=== PATIENT | male | born 1980 | race Caucasian/White ===

== ENCOUNTER 2018-01-04 08:59 | Outpatient (CLI) | payer BC ==
[2018-01-04] MEDS ORDERED: ISOVUE-370 76%-LOCM 1 ML ONE (11:49)
--- NOTE | 2018-01-05 18:59 | CT ---
CT ABDOMEN AND PELVIS WITH AND WITHOUT CONTRAST: Date: 01/04/18 HISTORY: R59.0, nonpathologically enlarged mesenteric lymph nodes on CT. COMPARISON: CT dated 11/27/17. FINDINGS: Lung bases are clear. No pericardial effusion. On the noncontrast portion of the examination, there is no nephroureterolithiasis or hydroureteroneph rosis. No secondary evidence of recently passed stone. New from the comparison examination is submucosal thickening of the entire colon, as well as of the t erminal ileum. There is some low grade submucosal fatty infiltration of the colon. The aortoiliac contour is nonaneurysmal. Spleen, liver, gallbladder, and pancreas are all unremarkabl e. Adrenal glands are normal. No abnormal renal enhancing mass. No retroperitoneal adenopathy. Unchanged from the comparison examination is mild infiltration of the proximal small bowel mesentery, as well as increased size and number of mesenteric lymph nodes. This is likely a chronic low grade i nfectious/inflammatory process. An example of mesenteric lymph nodes, series 3, image 62, measures 8. 0 mm in short axis, unchanged. Another index lymph node just craniad to this on image 60 measures 6.0 mm short axis, unchanged. No new lymph nodes from the comparison examination. These lymph nodes do r etain their fatty hilum and are just enlarged, not round. Skeleton is unremarkable. IMPRESSION: 1. Mild infiltration of the proximal small bowel mesentery with increased size and number of mesente peter lymph nodes, completely unchanged from the comparison examination. Index lymph nodes are given. T his has the appearance of a chronic longstanding inflammatory process and is not likely neoplastic in nature. 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 Underlying lymphoproliferative disorder such as lymphoma is felt much less likely. 2. Circumferential wall thickening and submucosal edema throughout the colon, as well as some fatty infiltration of the submucosa involving the terminal ileum. Nonemergent follow-up GI consultation for evaluation for Crohn's disease is recommended. POS: [facility]
== END 2018-01-04 09:00 | disposition home or self-care (01) ==
LOC: BICCT 08:59
PROVIDERS: ATTEND Internal Medicine Hematology & Oncology
DX: R59.0 Localized enlarged lymph nodes (principal); G40.89 Other seizures; K63.89 Other specified diseases of intestine
CPT/HCPCS: 74178

== ENCOUNTER 2019-11-01 14:57 | Inpatient (IN) | payer BC, OTHER ==
[2019-11-01] MEDS ORDERED: Aspirin Chewable 81 MG TAB ONE ×2 (15:59)
[2019-11-01] MEDS ORDERED: hydrALAZINE 20 MG/ML VIAL SLOW IVP PRN (16:18)
--- NOTE | 2019-11-01 16:21 | PDOC.HHP ---
Hospitalist HPI - History of Present Illness L arm weakness and numbness History of Present Illness: The patient is a 39-year-old male with past medical history as noted below who presented to the hospital with new onset left upper extremity numbness and weakness extending from his elbow to the hand. His symptoms persisted which prompted him to present to the emergency department. CT scan of the head without contrast was obtained which did not show any acute abnormalities. Given the persistence of his neurological symptoms, we will admit the patient to the hospital to rule out CVA. Hospitalist ROS - Review of Systems All other systems reviewed; all pertinent +/- noted in HPI/Subj Hospitalist History - Past Medical History [employer]CH[employer]IC: reports: Seizure - Past Surgical History Other Surgical History: Charleen lip and palate surgery - Family History Family History: reports: no pertinent history - Social History Smoking Status: Former smoker Alcohol: reports: None Drugs: reports: none - Exam General Appearance: awake alert Neck: supple, no JVD Heart: RRR, no murmur, no gallops Respiratory: CTAB, no wheezes, no rales Neurological: cranial nerve grossly intact Hospitalist H&P A/P - Problem (1) Left arm weakness Code(s): R29.898 - OTH SYMPTOMS AND SIGNS INVOLVING THE MUSCULOSKELETAL SYSTEM Status: Acute (2) Left arm numbness Code(s): R20.0 - ANESTHESIA OF SKIN Status: Acute - Plan Plan: Neuro tele. Neurochecks q4h. Liberate BP and treat if SBP>220 OR DBP>120 Check A1C, Lipid pnl, A1C. Check Brain MRI. Check carotid duplex. Echo cardiogram. ASA and Atorvastatin. Lovenox for DVT ppx.
[2019-11-01 17:40] VITALS: BMI 24.0
[2019-11-01] MEDS: Atorvastatin Calcium 40 MG TAB PO SCH (20:54)
[2019-11-02 04:55] LABS: Cardiac Risk 3.1 (Less than 4.5)
[2019-11-02] MEDS: Aspirin 325 mg Enteric Coated Tablet PO SCH (09:14)
[2019-11-02] MEDS: Enoxaparin Sodium 40 MG/0.4 ML SYRINGE SC SCH (09:14)
--- NOTE | 2019-11-02 10:32 | ULT ---
BILATERAL CAROTID DUPLEX ULTRASOUND: HISTORY: Transient ischemic attack TECHNIQUE: Grayscale, color-flow and spectral Doppler ultrasound imaging of the extracranial carotid artery syst ems and vertebral arteries was performed bilaterally. FINDINGS: No large amount of echogenic plaque is seen involving the common carotid or internal carotid arteries . The peak systolic velocity in the right ICA measures 107.5 cm/s. The peak systolic velocity in the r ight CCA measures 618.9 cm/s. The peak systolic velocity in the left ICA measures 103.1 cm/s. The peak systolic velocity in the left CCA measures 106.5 cm/s. The right IC/CC ration is0.9. The left IC/CC ratio is 1.0. Vertebral flow: antegrade, bilaterally. . IMPRESSION: No hemodynamically significant stenosis of either carotid artery
[2019-11-02] MEDS ORDERED: Prochlorperazine Maleate 5 MG TAB PO PRN (11:33)
[2019-11-02] MEDS ORDERED: diphenhydrAMINE 25 MG CAP PO PRN (11:33)
[2019-11-02] MEDS ORDERED: diphenhydrAMINE 25 MG CAP PO SCH (11:45)
[2019-11-02] MEDS ORDERED: Prochlorperazine Maleate 5 MG TAB PO SCH (11:45)
[2019-11-02 12:01] LABS: SARS-CoV-2 MS2 Positive; SARS-CoV-2 N Gene Negative; SARS-CoV-2 S Gene Negative; SARS-CoV-2 by NAA Not Detected (NotDetected); SARS-CoV-2 orf1ab Negative
--- NOTE | 2019-11-02 14:12 | PDOC.HOSPP ---
- Subjective Encounter Date: 11/02/19 Subjective: Patient still having persistent weakness and numbness in his left hand and wrist area. - Objective Vital Signs & Weight: Vital Signs (12 hours) Temp Pulse Resp BP Pulse Ox 11/02/19 11:43 98.2 F 67 16 107/66 96 11/02/19 07:43 97.5 F L 66 16 100/62 98 11/02/19 04:40 98.9 F 62 16 107/68 96 Weight Weight 172 lb 11.2 oz I&O: 11/01/19 11/02/19 11/03/19 06:59 06:59 06:59 Intake Total 960 960 Balance 960 960 Hospitalist ROS - Medication Medications: Active Medications Generic Name Dose Route Start Last Admin Trade Name Freq PRN Reason Stop Dose Admin Aspirin 325 mg 11/02/19 09:00 11/02/19 09:14 Aspirin 325 Mg Enteric Coated Tablet PO 325 mg DAILY HERO Administration Atorvastatin Calcium 40 mg 11/01/19 21:00 11/01/19 20:54 Atorvastatin Calcium 40 Mg Tab PO 40 mg HS HERO Administration Enoxaparin Sodium 40 mg 11/02/19 09:00 11/02/19 09:14 Enoxaparin Sodium 40 Mg/0.4 Ml Syringe SC 40 mg 0900 HERO Administration - Exam General Appearance: awake alert Neck: supple, no JVD Respiratory: normal chest expansion, no tachypnea Neurological: cranial nerve grossly intact, no new deficit Hosp A/P (1) Left arm weakness Code(s): R29.898 - OTH SYMPTOMS AND SIGNS INVOLVING THE MUSCULOSKELETAL SYSTEM Status: Acute (2) Left arm numbness Code(s): R20.0 - ANESTHESIA OF SKIN Status: Acute - Plan Persistent weakness rule out CVA. Pending results of MRI of the brain and carotid duplex in addition to echocardiogram. Continue aspirin and atorvastatin.
--- NOTE | 2019-11-02 14:12 | MRI ---
MRI OF THE BRAIN WITHOUT CONTRAST: 11/02/19 HISTORY: Left arm numbness. FINDINGS: Correlation is made with the CT scan from 11/01/19. No restricted diffusion is seen. No evidence of acute infarct, hemorrhage or midline shift is noted. The ventricular size is normal an d the basilar cisterns patent. Prominent cisterna magna versus arachnoid cyst in the posterior fossa are again noted. There is mucosal disease in the paranasal sinuses. IMPRESSION: No evidence of acute intracranial process. POS: [facility]
--- NOTE | 2019-11-02 14:37 | CON ---
NEUROLOGY CONSULTATION DATE OF CONSULTATION: 11/02/2019 REASON FOR CONSULTATION: Left upper extremity weakness and numbness. HISTORY OF PRESENT ILLNESS: Mr. Becerril is a 39-year-old male with medical history significant for cleft palate, status post surgery, and seizure, presented to the emergency room in [place] with right upper extremity numbness and weakness per the patient. He was last known well around midnight last night. On the morning of 11/01/2019, he woke up around 6:07 a.m. and had left arm tingling with pins and needles sensation associated with headache. He felt his left arm is slightly weak. He went to the emergency room and noticed some chest pressure, also on the left side most of the symptoms of weakness resolved, but he still has left arm tingling and numbness. He denies nausea or vomiting, but does have complaint of headache about 7/10 all over the head with no photophobia or phonophobia. He denies chest pain, loss of appetite, vertigo, dizziness, blurred vision, loss of vision, or loss of consciousness associated with the symptoms. He was admitted for stroke rule out. PAST MEDICAL HISTORY: Seizures, arthritis, cleft lip and palate, status post bone graft surgery, and hernia repair x2. SOCIAL HISTORY: The patient denies alcohol or illegal drug use. He is a former smoker and , lives at home with his family. ALLERGIES: NO KNOWN DRUG ALLERGIES. MEDICATIONS: He takes home medication. He takes medication for arthritis. In the emergency room, he was given aspirin and admitted to the floor for further workup for stroke. REVIEW OF SYSTEMS: All 14 systems were reviewed and were negative except the pertinent positives and negatives mentioned in the HPI. - Objective Vital Signs & Weight: Vital Signs (12 hours) Temp Pulse Resp BP Pulse Ox 11/02/19 11:43 98.2 F 67 16 107/66 96 11/02/19 07:43 97.5 F L 66 16 100/62 98 11/02/19 04:40 98.9 F 62 16 107/68 96 Weight Weight 172 lb 11.2 oz I&O: 11/01/19 11/02/19 11/03/19 06:59 06:59 06:59 Intake Total 960 960 Balance 960 960 Active Medications Generic Name Dose Route Start Last Admin Trade Name Freq PRN Reason Stop Dose Admin Aspirin 325 mg 11/02/19 09:00 11/02/19 09:14 Aspirin 325 Mg Enteric Coated Tablet PO 325 mg DAILY HERO Administration Atorvastatin Calcium 40 mg 11/01/19 21:00 11/01/19 20:54 Atorvastatin Calcium 40 Mg Tab PO 40 mg HS HERO Administration Enoxaparin Sodium 40 mg 11/02/19 09:00 11/02/19 09:14 Enoxaparin Sodium 40 Mg/0.4 Ml Syringe SC 40 mg 0900 HERO Administration PHYSICAL EXAMINATION: CVS: Regular rate and rhythm. CHEST: Clear. ABDOMEN: Soft. NECK: Supple. NEUROLOGIC: Mental status, the patient is alert and oriented to person, place, and time. Recent and remote memory, intact. Speech is clear. Follows commands appropriately. Cranial nerves 2 through 12 intact. Motor; muscle tone and bulk are normal. Strength 5/5 bilaterally. Sensory; decreased sensation to light touch in the left upper extremity. Finger-nose testing intact. Gait deferred due to the patient's safety reasons. DATA REVIEWED: I reviewed the CT scan, which was negative for acute intracranial pathology. Carotid Dopplers were negative for hemodynamically significant stenosis. ASSESSMENT AND PLAN: (1) Left arm weakness Code(s): R29.898 - OT SYMPTOMS AND SIGNS INVOLVING THE MUSCULOSKELETAL SYSTEM Status: Acute (2) Left arm numbness Code(s): R20.0 - ANESTHESIA OF SKIN Status: Acute (3) Headache Status: Acute Mr. Tavo Becerril is a 39-year-old male, who was consulted for left upper extremity numbness and weakness for stroke/ TIA workup.Complicated migraine with neurological features also in the differential. Consider MRI of the brain to rule out acute intracranial pathology. 2D echo to evaluate for left ventricular ejection fraction. Telemetry. Continue aspirin and high-intensity statin for secondary stroke prevention. Continue home medications. Strict control of blood pressure at this time. Strict control of blood glucose. Headache, consider Toradol and Compazine combination p.r.n. for headache. Neuro checks every 4 hours. Continue PT/OT/Speech. DVT prophylaxis. Continue medical management per Primary Team. We will continue to follow. Thank you for the consult. Job ID: [id number] MTDD
[2019-11-02] MEDS: Atorvastatin Calcium 40 MG TAB PO SCH (20:33)
[2019-11-03] MEDS ORDERED: Ketorolac Tromethamine 30 MG/ML VIAL IVP SCH (00:15)
[2019-11-03] MEDS: Aspirin 325 mg Enteric Coated Tablet PO SCH (09:11)
[2019-11-03] MEDS: Enoxaparin Sodium 40 MG/0.4 ML SYRINGE SC SCH (09:11)
[2019-11-03] MEDS: Ketorolac Tromethamine 30 MG/ML VIAL IVP SCH ×2 (12:03→19:12)
[2019-11-03] MEDS: diphenhydrAMINE 50 MG/ML VIAL IVP SCH ×2 (12:08→19:12)
[2019-11-03] MEDS: Prochlorperazine 10 MG/2 ML VIAL IVP SCH ×2 (12:11→19:13)
--- NOTE | 2019-11-03 12:34 | PDOC.NEUPN ---
- Subjective Encounter Date: 11/03/19 Subjective: Patient complain of neck pain and pain in the left upper extremity with weakness. He also complained of headache . MRI of the brain did not reveal any acute intracranial process stroke or bleed. - Objective Vital Signs & Weight: Vital Signs (12 hours) Temp Pulse Resp BP BP Pulse Ox 11/03/19 11:34 98 F 69 16 100/62 98 11/03/19 07:49 97.7 F 61 16 98/55 L 98 11/03/19 04:55 97.7 F 59 L 16 102/57 L 98 11/03/19 00:36 98.2 F 62 16 108/65 98 Weight Weight 172 lb 11.2 oz I&O: 11/02/19 11/03/19 11/04/19 06:59 06:59 06:59 Intake Total 960 1640 Balance 960 1640 Radiology Reviewed by me: Yes EKG Reviewed by me: Yes ROS - Review of Systems Constitutional: denies: fever, chills, sweats, weakness, malaise, other Eyes: reports: other (headache). denies: pain, vision change, conjunctivae inflammation, eyelid inflammation, redness ENT: denies: ear pain, ear discharge, nose pain, nose discharge, nose congestion, mouth pain, mouth swelling, throat pain, throat swelling, other Respiratory: denies: cough, dry, shortness of breath, hemoptysis, SOB with excertion, pleuritic pain, sputum, wheezing, other Cardiovascular: denies: no pertinent history, AFIB, CAD, CHF, HTN, DE, Syncope, Hyperlipidemia, Mitral valve stenosis, Aortic stenosis, Valve insufficiency, Pu lmonary hypertension, Other Musculoskeletal: reports: neck pain, arm pain. denies: shoulder pain, back pain, hand pain, leg pain, foot pain, other Neurological: reports: weakness, numbness. denies: incoordination, change in speech, confusion, seizures, other - Medication Medications: Active Medications Generic Name Dose Route Start Last Admin Trade Name Freq PRN Reason Stop Dose Admin Aspirin 325 mg 11/02/19 09:00 11/03/19 09:11 Aspirin 325 Mg Enteric Coated Tablet PO 325 mg DAILY HERO Administration Atorvastatin Calcium 40 mg 11/01/19 21:00 11/02/19 20:33 Atorvastatin Calcium 40 Mg Tab PO 40 mg HS HERO Administration Diphenhydramine HCl 25 mg 11/03/19 12:00 11/03/19 12:08 Diphenhydramine 50 Mg/Ml Vial IVP 11/04/19 18:01 25 mg Q6HR HERO Administration Enoxaparin Sodium 40 mg 11/02/19 09:00 11/03/19 09:11 Enoxaparin Sodium 40 Mg/0.4 Ml Syringe SC 40 mg 0900 HERO Administration Ketorolac Tromethamine 15 mg 11/03/19 12:00 11/03/19 12:03 Ketorolac Tromethamine 30 Mg/Ml Vial IVP 11/04/19 18:01 15 mg Q6HR HERO Administration Prochlorperazine Edisylate 15 mg 11/03/19 12:00 11/03/19 12:11 Prochlorperazine 10 Mg/2 Ml Vial IVP 11/04/19 18:01 15 mg Q6HR HERO Administration Sodium Chloride 10 ml 11/01/19 16:18 11/03/19 09:12 Flush - Normal Saline 10 Ml Syringe IVF 10 ml PRN PRN Administration Saline Flush - Exam General Appearance: awake alert Eye: PERRL ENT: normocephalic atraumatic Neck: supple Respiratory: CTAB Cardiovascular: RRR Gastrointestinal: soft Extremities: no cyanosis Skin: normal turgor Neurological: CN's grossly intact, no new deficit Musculoskeletal: normal tone, no muscle wasting PSYCH: normal affect, normal behavior, A&O x 3, oriented to person, oriented to place, oriented to time Results - EKG Interpretation EKG: nsr - Radiology Interpretation MRI - head Status: image reviewed by me, report reviewed by me Additional Comment: no acute intracranial pathology PN A/P (1) Left arm numbness Code(s): R20.0 - ANESTHESIA OF SKIN Status: Acute (2) Headache Code(s): R51 - HEADACHE Status: Acute (3) Neck pain Code(s): M54.2 - CERVICALGIA Status: Acute - Plan Daily Plan: PT/OT, out of bed/ambulate 39-year-old male presented with acute onset numbness associated with mild weakness of the left upper extremity. Patient continues to have these symptoms. MRI of the brain did not show any acute intracranial process. Patient does complain of headache and neck stiffness neck pain. Most likely complicated migraine with neurological features. MRI of the brain reviewed and was negative for acute intracranial pathology. Start scheduled doses of migraine cocktail to abort the headache. Toradol 15 mg every 6 hours x6 doses. Compazine 15 mg IV every 6 hours x6 doses. Benadryl 25 mg IV every 6 hours x6 doses. Neuro checks every 4 hours. Cervical spine MRI for neck pain. Continue home medications. Continue medical management per primary team. Plan discussed in detail with the patient, nursing staff and the primary attending Dr. Pitt
--- NOTE | 2019-11-03 14:05 | MRI ---
MRI of thecervical spine: 11/03/2019 COMPARISON:None available HISTORY:Complex migraine, left hand numbness, tingling TECHNIQUE: Multiplanar multisequence MR imaging of thecervical spine without contrast Findings:The sagittal STIR imaging demonstrates no focal area of osseous marrow edema. There is incre ased T2 signal posterior to the cerebellum which may signify posterior fossa arachnoid cyst or maybe cisterna magna. C2-3: No central canal or neural foraminal stenosis. C3-4: No central canal or neural foraminal stenosis C4-5: There is minimal disc bulge with no significant central canal or neural foraminal stenosis. C5-6: There is disc desiccation with mild disc bulge effacing the ventral thecal sac and abutting the ventral aspect of the cord with a mild degree of central canal stenosis. Disc bulge extends into bilateral neural foramina causing a mild/moderate degree of bilateral neural foraminal stenosis. C6-7: Unremarkable C7-T1: Unremarkable. No focal area of abnormal signal intensity is identified within the cervical cord. IMPRESSION:Degenerative disc disease of the cervical spine, most prominent at C5-6. Posterior fossa arachnoid cyst versus megacystis sternum magna, incompletely imaged on this exam.
--- NOTE | 2019-11-03 14:17 | PDOC.HOSPP ---
- Subjective Encounter Date: 11/03/19 Subjective: c/o headache and neck pain - Objective Vital Signs & Weight: Vital Signs (12 hours) Temp Pulse Resp BP BP Pulse Ox 11/03/19 11:34 98 F 69 16 100/62 98 11/03/19 07:49 97.7 F 61 16 98/55 L 98 11/03/19 04:55 97.7 F 59 L 16 102/57 L 98 Weight Weight 172 lb 11.2 oz I&O: 11/02/19 11/03/19 11/04/19 06:59 06:59 06:59 Intake Total 960 1640 Balance 960 1640 Hospitalist ROS - Medication Medications: Active Medications Generic Name Dose Route Start Last Admin Trade Name Freq PRN Reason Stop Dose Admin Aspirin 325 mg 11/02/19 09:00 11/03/19 09:11 Aspirin 325 Mg Enteric Coated Tablet PO 325 mg DAILY HERO Administration Atorvastatin Calcium 40 mg 11/01/19 21:00 11/02/19 20:33 Atorvastatin Calcium 40 Mg Tab PO 40 mg HS HERO Administration Diphenhydramine HCl 25 mg 11/03/19 12:00 11/03/19 12:08 Diphenhydramine 50 Mg/Ml Vial IVP 11/04/19 18:01 25 mg Q6HR HERO Administration Enoxaparin Sodium 40 mg 11/02/19 09:00 11/03/19 09:11 Enoxaparin Sodium 40 Mg/0.4 Ml Syringe SC 40 mg 0900 HERO Administration Ketorolac Tromethamine 15 mg 11/03/19 12:00 11/03/19 12:03 Ketorolac Tromethamine 30 Mg/Ml Vial IVP 11/04/19 18:01 15 mg Q6HR HERO Administration Prochlorperazine Edisylate 15 mg 11/03/19 12:00 11/03/19 12:11 Prochlorperazine 10 Mg/2 Ml Vial IVP 11/04/19 18:01 15 mg Q6HR HERO Administration Sodium Chloride 10 ml 11/01/19 16:18 11/03/19 09:12 Flush - Normal Saline 10 Ml Syringe IVF 10 ml PRN PRN Administration Saline Flush - Exam General Appearance: awake alert Neck: supple, no JVD Heart: RRR Extremities: no cyanosis, no clubbing Neurological: cranial nerve grossly intact, no weakness Hosp A/P (1) Left arm weakness Code(s): R29.898 - OTH SYMPTOMS AND SIGNS INVOLVING THE MUSCULOSKELETAL SYSTEM Status: Acute (2) Left arm numbness Code(s): R20.0 - ANESTHESIA OF SKIN Status: Acute - Plan CVA ruled out. Still complaining of headache and neck pain. His symptoms still present. MRI of the cervical spine.
[2019-11-03] MEDS: Atorvastatin Calcium 40 MG TAB PO SCH (21:06)
[2019-11-04] MEDS: diphenhydrAMINE 50 MG/ML VIAL IVP SCH ×3 (01:47→15:00)
[2019-11-04] MEDS: Prochlorperazine 10 MG/2 ML VIAL IVP SCH ×3 (01:48→15:25)
[2019-11-04] MEDS: Ketorolac Tromethamine 30 MG/ML VIAL IVP SCH ×3 (01:48→15:25)
--- NOTE | 2019-11-04 08:22 | PRG ---
DATE OF SERVICE: 11/04/2019 SUBJECTIVE: I personally interviewed and examined the patient, agreed with documentation of Modesto Rudd PA-C, dated 11/04/2019. Briefly, Tavo Becerril is a 39-year-old gentleman who has been in the hospital for 3 days starting this 4th day for acute onset of bilateral arm numbness and some left arm weakness. He was evaluated for a stroke and both CT and MR imaging of the brain was negative. An echocardiogram was done, I do not see any evidence of an transesophageal echo looking for a vegetation on the valve. Due to headaches and some neck pain, an MRI scan of the cervical spine was done. The craniocervical junction has more acute than average angle, but there is plenty of room for the cord. Similarly, there is intervertebral disk disease at C5-C6 that causes some foraminal stenosis and some canal stenosis, but the amount of stenosis is [id number]. There is no cord compression. No T2 signal change in the cord and both of these are likely chronic issues that would not typically present with acute onset symptoms. Further, during the episode of numbness, the patient's noticed that the hands became ashen and white. It could be a vascular reactivity issue like Raynaud's phenomenon or an ischemic issue from an embolic event. I doubt this is a spinal cord issue, honestly. To be sure, we will get flexion-extension views of the cervical spine looking for any craniocervical instability or C5-C6 instability, but in the absence of those, I do not believe I will be recommending any surgical intervention. We can follow up in the office for his C5-C6 disk electively at some point in the future. Thank you for the consult. (15 min) Job ID: [id number] [facility]
[2019-11-04] MEDS: Aspirin 325 mg Enteric Coated Tablet PO SCH (08:56)
[2019-11-04] MEDS: Enoxaparin Sodium 40 MG/0.4 ML SYRINGE SC SCH (08:56)
--- NOTE | 2019-11-04 10:39 | RAD ---
EXAM: Cervical spine radiographs 7 views PROVIDED CLINICAL HISTORY: Hand numbness and tingling COMPARISON: None FINDINGS: Cervical alignment appears normal. There is no evidence for abnormal translational motion with flexio n and extension. Vertebral body heights and intervertebral disc space heights appear preserved. The oblique views are suboptimally positioned for evaluation of the bony neural foramina. There is no facundo dence for fracture. No prevertebral soft tissue swelling apparent. The visualized lung apices appear clear. IMPRESSION: Unremarkable cervical spine radiographs.
--- NOTE | 2019-11-04 12:50 | PDOC.NEUPN ---
- Subjective Encounter Date: 11/04/19 Subjective: Patient headache resolved and weakness in the left upper extremity also resolved. He still reports tingling in the wrist and hand. MRI of the cervical spine showed moderate degenerative changes and stenosis. No surgical intervention needed per neurosurgery. - Objective Vital Signs & Weight: Vital Signs (12 hours) Temp Pulse Resp BP Pulse Ox 11/04/19 08:56 98 11/04/19 08:00 98.2 F 58 L 16 103/60 98 11/04/19 03:58 97.5 F L 60 16 95/57 L 96 Weight Weight 172 lb 11.2 oz I&O: 11/03/19 11/04/19 11/05/19 06:59 06:59 06:59 Intake Total 1640 815 Balance 1640 815 Radiology Reviewed by me: Yes EKG Reviewed by me: Yes ROS - Review of Systems Constitutional: denies: fever, chills, sweats, weakness, malaise, other Eyes: denies: pain, vision change, conjunctivae inflammation, eyelid inflammation, redness, other ENT: denies: ear pain, ear discharge, nose pain, nose discharge, nose congestion, mouth pain, mouth swelling, throat pain, throat swelling, other Respiratory: denies: cough, dry, shortness of breath, hemoptysis, SOB with excertion, pleuritic pain, sputum, wheezing, other Cardiovascular: denies: no pertinent history, AFIB, CAD, CHF, HTN, MO, Syncope, Hyperlipidemia, Mitral valve stenosis, Aortic stenosis, Valve insufficiency, Pulmonary hypertension, Other Gastrointestinal: denies: nausea, vomiting, abdominal pain, diarrhea, constipation, melena, hematochezia, other Genitourinary: denies: dysuria, frequency, incontinence, hematuria, retention, other Musculoskeletal: denies: neck pain, shoulder pain, arm pain, back pain, hand pain, leg pain, foot pain, other Skin: denies: rash, lesions, kindra, bruising, other Neurological: reports: numbness. denies: weakness, incoordination, change in speech, confusion, seizures, other - Medication Medications: Active Medications Generic Name Dose Route Start Last Admin Trade Name Freq PRN Reason Stop Dose Admin Aspirin 325 mg 11/02/19 09:00 11/04/19 08:56 Aspirin 325 Mg Enteric Coated Tablet PO 325 mg DAILY HERO Administration Atorvastatin Calcium 40 mg 11/01/19 21:00 11/03/19 21:06 Atorvastatin Calcium 40 Mg Tab PO 40 mg HS HERO Administration Diphenhydramine HCl 25 mg 11/03/19 12:00 11/04/19 06:49 Diphenhydramine 50 Mg/Ml Vial IVP 11/04/19 18:01 Not Given Q6HR HERO Enoxaparin Sodium 40 mg 11/02/19 09:00 11/04/19 08:56 Enoxaparin Sodium 40 Mg/0.4 Ml Syringe SC 40 mg 09 HERO Administration Ketorolac Tromethamine 15 mg 11/03/19 12:00 11/04/19 07:15 Ketorolac Tromethamine 30 Mg/Ml Vial IVP 11/04/19 18:01 Not Given Q6HR HERO Prochlorperazine Edisylate 15 mg 11/03/19 12:00 11/04/19 07:16 Prochlorperazine 10 Mg/2 Ml Vial IVP 11/04/19 18:01 Not Given Q6HR HERO Sodium Chloride 10 ml 11/01/19 16:18 11/04/19 08:56 Flush - Normal Saline 10 Ml Syringe IVF 10 ml PRN PRN Administration Saline Flush - Exam General Appearance: awake alert Eye: PERRL ENT: normocephalic atraumatic Neck: supple, symmetric Respiratory: CTAB Cardiovascular: RRR Gastrointestinal: soft Extremities: no cyanosis Skin: normal turgor Neurological: CN's grossly intact, no focal deficits Musculoskeletal: normal tone, normal strength, no muscle wasting PSYCH: normal affect, normal behavior, A&O x 3 Results - Radiology Interpretation MRI - head Status: image reviewed by me, report reviewed by me Additional Comment: No acute intracranial pathology Other Status: image reviewed by me, report reviewed by me (MRI cervical spine showed degenerative changes) PN A/P (1) Left arm numbness Code(s): R20.0 - ANESTHESIA OF SKIN Status: Acute (2) Headache Code(s): R51 - HEADACHE Status: Acute (3) Neck pain Code(s): M54.2 - CERVICALGIA Status: Acute - Plan Daily Plan: plan discussed w/ family, PT/OT, speech therapy, out of bed/ambulate 39-year-old male presented with acute onset numbness associated with mild weakness of the left upper extremity. Patient continues to have these symptoms. MRI of the brain did not show any acute intracranial process. Patient does complain of headache and neck stiffness neck pain. Most likely complicated migraine with neurological features. Headache resolved and LUE weakness is also resolved. He still complains of numbness in the hand and wrist and has a concern about discoloration in the left upper extremity mainly in the hand. Most likely Raynaud's phenomena which needs to be further evaluated by the primary care physician and rheumatology since it falls outside the neurology spectrum. MRI of the brain reviewed and was negative for acute intracranial pathology. Headache resolved so discontinue migraine cocktail Neuro checks every 4 hours. Cervical spine MRI for neck pain. Moderate stenosis and degenerative changes. No intervention per neurosurgery. Continue home medications. Continue medical management per primary team. Plan discussed in detail with the patient and the on the phone. Patient and the are not too happy with the diagnosis.. Patient was explained in detail yesterday that he did not have a stroke but he had no recollection of the conversation. Both patient and are upset about the diagnosis which was explained in detail again. Patient can follow-up as outpatient with a neurologist if he continues to have headaches. Follow-up with rheumatology as outpatient for further evaluation of raynaud's phenomena. No further recommendations from neurology perspective. Plan also discussed during MDR rounds.
[2019-11-04 14:57] VITALS: BP 110/75; TEMP 97.7
--- NOTE | 2019-11-04 22:24 | CON ---
DATE OF CONSULTATION: 11/04/2019 HISTORY OF PRESENT ILLNESS: Mr. Becerril is a 39-year-old gentleman who presented to the emergency room at [place] with right upper extremity weakness and numbness. He states that the weakness in his bilateral arms had resolved. Today, he was just complaining of left forearm numbness and tingling. He also stated that his noticed bilateral bluish castro color to his hands on Thursday that quickly resolved. She denied loss of consciousness, vision, dizziness, vertigo, or loss of appetite. He was admitted to rule out CVA. He was evaluated for stroke with both the CT and MR imaging of the brain, which were both negative. Due to headaches and some neck pain, MRI scan was done of the cervical spine. At the C5-C6, there was herniated cervical discs with mild cord and foraminal stenosis. Neurosurgery was consulted. PAST MEDICAL HISTORY: Hernia repair, cleft lip and palate, arthritis, seizures . SOCIAL HISTORY: Former smoker. Denies illicit drugs or alcohol. ALLERGIES: NO KNOWN DRUG ALLERGIES. MEDICATIONS: No daily medications. FAMILY HISTORY: Father alive. Mother alive. REVIEW OF SYSTEMS: CONSTITUTIONAL: Denies fever, chills. ENT: Denies change in vision or hearing. CARDIAC: Denies chest pain, shortness of breath, diaphoresis. PULMONARY: Denies shortness of breath, cough, hemoptysis. GI: Denies abdominal pain, nausea, vomiting, diarrhea, change in stool formation and consistency. : Denies trouble with urination, frequency of urination bloody urine. SKIN: Denies skin rash, bruising, bleeding, skin masses. MUSCULOSKELETAL: As per history of present illness. NEUROLOGIC: As per history of present illness. PSYCHOLOGIC: Denies anxiety, depression, or behavior changes. PHYSICAL EXAMINATION: VITAL SIGNS: BP 118/74, pulse 78, respiratory rate 18, temperature 98.6. HEENT: Pupils are equal. Extraocular movements are intact. NECK: Soft, supple. No masses are noted. EXTREMITIES: Range of motion is intact and nonpainful. NEUROLOGIC: Awake, alert, and oriented x3. Memory, attention, fund of knowledge normal. Cranial nerves are grossly intact. Upper extremity, he has 4/5 strength in the left deltoid and triceps. Otherwise, 5/5 strength in wrist extension, finger extension, finger intrinsic. Sensation is equal bilaterally. Lower extremity, he has 5/5 bilateral strength in the iliopsoas, quadriceps, hamstrings, anterior tib, EHL, and gastrocnemius. There is no area of dermatomal sensory loss. The toes are downgoing. IMAGING: CT and MRI imaging of the brain was negative. Cervical spine MRI showed intravertebral disk disease at C5-C6 causing some foraminal stenosis and some canal stenosis. ASSESSMENT: Cervical stenosis. PLAN: Recommend a flexion-extension cervical spine x-ray to look for any craniocervical instability. We will reach out to him and have him follow up in our clinic at some point in the future. No neurosurgical intervention at this time. Time spent providing care to patient (50 minutes). Job ID: [id number]
--- NOTE | 2019-11-05 07:20 | DIS ---
DATE OF ADMISSION: 11/03/2019 DATE OF DISCHARGE: 11/04/2019 DISCHARGE DIAGNOSES: 1. Left upper extremity weakness and numbness. 2. Complicated migraines. DISCHARGE MEDICATIONS: 1. Aspirin 81 mg orally daily. 2. Etodolac 400 mg orally daily as needed for pain. HISTORY OF PRESENT ILLNESS AND HOSPITAL COURSE: The patient is a 39-year-old male with no significant past medical history other than distant history of seizures, who presented to the hospital with complaints of new onset left upper extremity weakness and numbness. He was admitted to the Stroke Unit and underwent testing to rule out CVA. This included a CT scan of the brain without contrast, MRI of the brain, carotid ultrasound, all of which were unrevealing. The patient was evaluated by Neurology and his symptoms were thought to be due to complicated migraines. Hemoglobin A1c was within normal limits as well as the lipid profile. At this time, the patient is stable to be discharged home with outpatient followup with PCP in 1 week. Job ID: [id number]
== END 2019-11-04 15:00 | disposition home or self-care (01) | DRG 103 ==
LOC: ERS 14:57 → 2SE 15:43 → OBSVTOIN 11-03 16:05
PROVIDERS: ADMIT Internal Medicine; ATTEND Internal Medicine
DX: G43.109 Migraine with aura, not intractable, without status migrainosus (principal); R20.0 Anesthesia of skin; M48.02 Spinal stenosis, cervical region; G40.909 Epilepsy, unspecified, not intractable, without status epilepticus; M19.90 Unspecified osteoarthritis, unspecified site; Z98.890 Other specified postprocedural states; Z87.891 Personal history of nicotine dependence; Z20.828 Contact with and (suspected) exposure to other viral communicable diseases
CPT/HCPCS: 36415; 70551; 72052; 72141; 80061; 83036; 87635; 93306; 93880; 94760; J0780; J1200; J1650; J1885; Q0163; Q0164; U0003